=== PATIENT | female | born 1980 | race Caucasian/White ===

== ENCOUNTER 2017-01-23 21:13 | Emergency (ER) | payer SELFPAY ==
[~2017-01-23 21:13] MED LIST: COLACE-DPS100 MG PO; MACROBID100 MG PO; MOTRIN-DPS800 MG PO; PERCOCET 5 DPS1 TAB PO; PRENATAL VITAM1 EAC1 PO
--- NOTE | 2017-02-12 21:26 | ER ---
ADMIT: 01/23/2017 RM/LOC: ER [facility] MR#: [id number] [place], [place] [id number] FREDI HOWELL [address] [place] [address] Emergency Room Report SEX: F AGE: 36 : 1980 DATE: 01/23/2017 HISTORY OF PRESENT ILLNESS: A 36-year-old who comes in with multitude of complaints, one of which is recent health fair, where she was told she got high blood pressure, so she is concerned about that. She is concerned about dizziness, concerned about aches and pains. She states she had a negative home test, but was uncertain if she could still be . She was orthostatically hypotensive. She subsequently got 1 L of fluid. CBC was within normal parameters. BMP is pending at this time of dictation. Her anticipated being normal. If there are any abnormalities, it will be addressed. PLAN: Discharging the patient home. DIAGNOSES: 1. Hypertension. 2. Volume depletion. She was instructed to follow up with the doctor this week to have her hypertension addressed. Dmitry Germain MD/ gita JOB #: [id number] CC: Aiden Ivey MD, Attending Physician Raghav Larios MD, Family Physician
== END 2017-01-23 22:50 | disposition home or self-care (01) ==
LOC: ER 21:13
DX: E86.9 Volume depletion, unspecified (principal); I95.1 Orthostatic hypotension